=== PATIENT | female | born 1985 | race Two or more races ===

== ENCOUNTER 2020-04-26 21:36 | Emergency (ER) | payer BC ==
[~2020-04-26] VITALS: Ht 162.6 cm; Wt 49.9 kg
[2020-04-26] MEDS ORDERED: ONDA4TAB11 PO (22:35)
[2020-04-26] MEDS ORDERED: ONDANSETRON ODT 4 MG TAB.RAPDIS ONE (22:42)
[2020-04-26] MEDS: ONDANSETRON ODT 4 MG TAB.RAPDIS SL ONE (22:48)
[2020-04-26 23:00] VITALS: BP 127/78
[2020-04-27] MEDS ORDERED: AMPH10CA3 PO (06:47)
[2020-04-27] MEDS ORDERED: ARIP5TAB10 PO (06:47)
[2020-04-27] MEDS ORDERED: DULO20CA PO (06:47)
== END 2020-04-26 22:45 | disposition home or self-care (01) ==
LOC: ER 21:36
DX: F15.282 Other stimulant dependence with stimulant-induced sleep disorder (principal); F90.9 Attention-deficit hyperactivity disorder, unspecified type; K21.9 Gastro-esophageal reflux disease without esophagitis; R03.0 Elevated blood-pressure reading, without diagnosis of hypertension
CPT/HCPCS: A4663; Q0162

== ENCOUNTER 2020-04-27 01:21 | Emergency (ER) | payer BC, OTHER ==
[~2020-04-27] VITALS: Ht 162.6 cm; Wt 49.9 kg
[~2020-04-27 01:21] MED LIST: ONDA4TAB11 PO
--- NOTE | 2020-04-27 01:40 | NUR ---
Patient was just discharged from ER maybe 2 hours ago when she originally presented with Insomnia secondary to her Amphetamine use. Is now brought in by friend who is concerned about patients Mental Health. A&Ox4. Anxious. She is cooperative and well kept. No reports of Chest pain, SOB, or palpitations - just with minimal Tachycardia initially. No SOB, COVID negative (Rapid swab). No GI/ issues per patient.
[2020-04-27 02:00] LABS: CARBON DIOXIDE 31 mmol/L (21-32); CHLORIDE 99 mmol/L (98-107); CREATININE 0.9 mg/dL (0.6-1.3); GLUCOSE 102 mg/dL (74-106); POTASSIUM 3.6 mmol/L (3.5-5.1); UREA NITROGEN, BLOOD 13 mg/dL (7-18)
[2020-04-27 02:06] LABS: ALANINE AMINOTRANSFERASE 30 U/L (14-59); ALKALINE PHOSPHATASE 39 U/L (50-136); ASPARTATE AMINOTRANSFERASE 27 U/L (15-37); BILIRUBIN,DIRECT 0.2 mg/dL (0.0-0.2); BILIRUBIN,TOTAL 0.6 mg/dL (0.2-1.0); TOTAL PROTEIN, SERUM 8.2 g/dL (6.4-8.2)
[2020-04-27 02:08] LABS: ACETAMINOPHEN < 2.0 ug/mL (10-30)
[2020-04-27 02:09] LABS: BASOPHILS % (AUTO) 0.8 % (0.0-2.0); EOSINOPHILS # (AUTO) 0.1 K/uL (0.0-0.7); EOSINOPHILS % (AUTO) 1.7 % (0.0-7.0); HEMATOCRIT 38.2 % (31.2-41.9); LYMPHOCYTES # (AUTO) 1.8 K/uL (20.0-40.0); LYMPHOCYTES % (AUTO) 29.4 % (20.5-51.5); MEAN CORPUSCULAR HEMOGLOBIN 29.7 uug (24.7-32.8); MEAN CORPUSCULAR HGB CONC 34 g/dL (32.3-35.6); MEAN CORPUSCULAR VOLUME 87.1 fL (75.5-95.3); MONOCYTES # (AUTO) 0.6 K/uL (2.0-10.0); NEUTROPHILS # (AUTO) 3.5 K/uL (1.8-8.9); NEUTROPHILS % (AUTO) 58.1 % (38.5-71.5); PLATELET COUNT (AUTO) 331 K/uL (179-408); RED BLOOD CELL COUNT(AUTO) 4.39 MIL/uL (3.63-4.92)
[2020-04-27 02:13] LABS: THYROID STIMULATING HORMONE 1.773 mIU/mL (0.358-3.740)
[2020-04-27 02:18] LABS: ETHANOL < 3 MG/DL (0-0)
[2020-04-27 02:45] LABS: *AMPHETAMINE, URINE POSITIVE (NEGATIVE); *CANNABINOID, URINE POSITIVE (NEGATIVE); *COCCAINE, URINE NEGATIVE (NEGATIVE); *OPIATE, URINE NEGATIVE (NEGATIVE); *PHENCYCLIDINE SCREEN,URINE NEGATIVE (NEGATIVE)
--- NOTE | 2020-04-27 03:44 | NUR ---
Contacted Marisol (Crisis Team) and notified her of the situation. Will be arriving shortly.
[2020-04-27 03:57] LABS: *BILIRUBIN,URIN NEGATIVE (NEGATIVE); *BLOOD, URINE NEGATIVE (NEGATIVE); *COLOR,URINE YELLOW (YELLOW); *KETONES,URINE NEGATIVE (NEGATIVE); *UROBILINOGEN,URINE 0.2 E.U./dl (NORMAL); LEUKOCYTE ESTERASE ,URINE NEGATIVE (NEGATIVE); NITRITE, URINE NEGATIVE (NEGATIVE); UGLUCOSE NEGATIVE (NEGATIVE)
[2020-04-27 03:59] LABS: *CLARITY,URINE HAZY (CLEAR)
[2020-04-27 04:01] LABS: *URINE HCG, QUAL NEGATIVE (NEGATIVE)
[2020-04-27 04:06] LABS: BACTERIA,URINE NONE SEEN /HPF (NONE SEEN); RBC,URINE NONE SEEN /HPF (0-3); SQUAMOUS EPITHELIAL CELL,UR FEW /HPF (NONE SEEN); WBC,URINE 0-3 /HPF (0-3)
[2020-04-27 04:07] LABS: URINE AMORPHOUS PHOSPHATES MANY /HPF
--- NOTE | 2020-04-27 04:17 | NUR ---
Patient asleep in bed.
--- NOTE | 2020-04-27 06:06 | NUR ---
Patient asleep in bed. We're awaiting Crisis Team to arrive to assess patient.
[2020-04-27] MEDS ORDERED: AMPH10CA3 PO (06:47)
[2020-04-27] MEDS ORDERED: ARIP5TAB10 PO (06:47)
[2020-04-27] MEDS ORDERED: DULO20CA PO (06:47)
--- NOTE | 2020-04-27 07:00 | NUR ---
JHONNY FITZPATRICK, PET, HERE TO EVALUATE THE PT.
--- NOTE | 2020-04-27 07:35 | NUR ---
moved pt from room 2b to room 5a. comfort measures provided, vss.
--- NOTE | 2020-04-27 08:00 | NUR ---
BREAKFAST TRAY AT BEDSIDE.
--- NOTE | 2020-04-27 08:22 | NUR ---
ANDRE FROM [facility] CALLED BACK AND ACCEPTED THE PT, RECIEVED SOME MORE DETAILS ABOUT THE PT AND WILL CALL BACK WITH ACCEPTING [facility]
--- NOTE | 2020-04-27 08:27 | NUR ---
[facility] CALLED BACK: ACCEPTING MD IS DR. HEARN, PT GOING TO [facility], ROOM 220, , PT WILL BE ACCEPTED AFTER 1200.
--- NOTE | 2020-04-27 08:37 | NUR ---
PT AGREED TO GO TO [facility] AND SIGNED THE TRANSFER DOCUMENT.
--- NOTE | 2020-04-27 08:49 | NUR ---
[facility] CALLED BACK AND WERE NOTIFIED OF THE PT PLACEMENT ALREADY.
--- NOTE | 2020-04-27 08:57 | NUR ---
CALLED [facility] FOR TRANSFER SKATE HOP TIME 1145, TRIP NUMBER [id number].
--- NOTE | 2020-04-27 11:38 | NUR ---
kylee here at bedside to transfer the pt. gave report to rn at [facility].
== END 2020-04-27 12:11 ==
LOC: ER 01:27
DX: F32.9 Major depressive disorder, single episode, unspecified (principal); T43.621A Poisoning by amphetamines, accidental (unintentional), initial encounter; F15.282 Other stimulant dependence with stimulant-induced sleep disorder; Y92.89 Other specified places as the place of occurrence of the external cause; K21.9 Gastro-esophageal reflux disease without esophagitis; Z20.822 Contact with and (suspected) exposure to COVID-19
CPT/HCPCS: 36415; 84443; 84703; 85025; A4663; G0480

== ENCOUNTER 2021-04-12 00:36 | Emergency (ER) | payer BC ==
[~2021-04-12] VITALS: Ht 162.6 cm; Wt 49.9 kg
[~2021-04-12 00:36] MED LIST changes: +AMPH10CA3 PO; +ARIP5TAB10 PO; +DULO20CA PO; -ONDA4TAB11 PO
[2021-04-12] MEDS ORDERED: IV D5W-0.45% NS +20 KCL 1,000 ML IV ONE ×2 (01:15→01:52)
[2021-04-12] MEDS ORDERED: POTASSIUM CHLORIDE 20 MEQ TAB.PRT.SR PO ONE (01:15)
[2021-04-12 01:50] LABS: POTASSIUM 2.7 mmol/L (3.5-5.1)
[2021-04-12] MEDS ORDERED: POTASSIUM CHLORIDE 20 MEQ TAB.PRT.SR ONE (01:50)
[2021-04-12 04:10] LABS: CREATININE 0.9 mg/dL (0.6-1.3); POTASSIUM 3.5 mmol/L (3.5-5.1)
--- NOTE | 2021-04-12 04:20 | NUR ---
IV removed. Catheter intact and site benign. Pressure and 4x4 gauze applied to site. No bleeding noted.
--- NOTE | 2021-04-12 04:35 | NUR ---
Patient discharged to home in stable condition. Written and verbal after care instructions given. Patient verbalizes understanding of instructions. Stressed follow up or return to ER for worsening s/s.
[2021-04-12 06:13] VITALS: BP 99/68
== END 2021-04-12 04:40 | disposition home or self-care (01) ==
LOC: ER 00:41
DX: E87.6 Hypokalemia (principal); K21.9 Gastro-esophageal reflux disease without esophagitis; Z79.899 Other long term (current) drug therapy
CPT/HCPCS: 36415; 80048 ×2; 96365; 96366; 99284; J3490; A4663

== ENCOUNTER 2022-10-12 22:01 | Emergency (ER) | payer BC ==
[~2022-10-12] VITALS: Ht 162.6 cm; Wt 42.6 kg
[2022-10-12] MEDS ORDERED: ONDANSETRON 4 MG/2 ML VIAL ONE (22:38)
[2022-10-12] MEDS ORDERED: ONDANSETRON 4 MG/2 ML VIAL IV ONE (22:45)
[2022-10-12] MEDS ORDERED: IV NORMAL SALINE 1000 ML BAG IV ONE (22:45)
[2022-10-12 22:54] LABS: BASOPHILS % (AUTO) 0.3 % (0.0-2.0); EOSINOPHILS % (AUTO) 0.2 % (0.0-7.0); HEMATOCRIT 43.6 % (31.2-41.9); HEMOGLOBIN 14.9 g/dL (10.9-14.3); LYMPHOCYTES # (AUTO) 1.6 K/uL (0.8-4.8); LYMPHOCYTES % (AUTO) 20.5 % (20.5-51.5); MEAN CORPUSCULAR HGB CONC 34 g/dL (32.3-35.6); MEAN CORPUSCULAR VOLUME 88.3 fL (75.5-95.3); MONOCYTES # (AUTO) 0.3 K/uL (0.1-1.30); MONOCYTES % (AUTO) 3.6 % (0.0-11.0); NEUTROPHILS # (AUTO) 5.9 K/uL (1.8-8.9); NEUTROPHILS % (AUTO) 75.4 % (38.5-71.5); PLATELET COUNT (AUTO) 293 K/uL (179-408); RED BLOOD CELL COUNT(AUTO) 4.94 MIL/uL (3.63-4.92); WHITE BLOOD COUNT (AUTO) 7.8 K/uL (3.8-11.8)
[2022-10-12 23:06] LABS: DIFFERENTIAL COMMENT 1
[2022-10-12 23:13] LABS: MAGNESIUM 2.2 mg/dL (1.8-2.4)
[2022-10-12 23:16] LABS: CALCIUM 8.9 mg/dL (8.5-10.1); CARBON DIOXIDE 27 mmol/L (21-32); CHLORIDE 103 mmol/L (98-107); CREATININE 0.8 mg/dL (0.6-1.3); GLUCOSE 85 mg/dL (74-106); POTASSIUM 4.2 mmol/L (3.5-5.1); SODIUM SERUM 139 mmol/L (136-145); UREA NITROGEN, BLOOD 18 mg/dL (7-18)
[2022-10-12 23:20] LABS: ALANINE AMINOTRANSFERASE 28 U/L (14-59); ALBUMIN 4.4 g/dL (3.4-5.0); ALKALINE PHOSPHATASE 37 U/L (50-136); ASPARTATE AMINOTRANSFERASE 22 U/L (15-37); BILIRUBIN,DIRECT 0.2 mg/dL (0.0-0.2); BILIRUBIN,TOTAL 0.6 mg/dL (0.2-1.0); TOTAL PROTEIN, SERUM 8.4 g/dL (6.4-8.2)
[2022-10-12 23:21] LABS: ETHANOL < 3 MG/DL (0-10)
[2022-10-12 23:28] LABS: PREGNANCY TEST SERUM QUAN < 1 miul/L (0-6)
[2022-10-12] MEDS ORDERED: ONDA4TAB11 PO (23:46)
[2022-10-12 23:48] LABS: LIPASE 38 U/L (73-393)
[2022-10-13 00:03] VITALS: BP 122/68; TEMP 97.9; O2SAT 100
== END 2022-10-13 00:04 | disposition home or self-care (01) ==
LOC: ER 22:01
DX: R11.2 Nausea with vomiting, unspecified (principal); F10.10 Alcohol abuse, uncomplicated; R10.2 Pelvic and perineal pain; Z79.899 Other long term (current) drug therapy; Y90.0 Blood alcohol level of less than 20 mg/100 ml
CPT/HCPCS: 80076; 80048; 83690; 83735; 85025; 84702; 36415; 99283; 96361; 96374; 80320; J2405; J7040; A4663; G0480